=== PATIENT | female | born 1975 | race Caucasian/White ===

== ENCOUNTER 2018-11-13 13:24 | Emergency (ER) | payer BC, MEDICARE ==
[~2018-11-13] VITALS: Ht 172.7 cm; Wt 99.8 kg
[2018-11-13] MEDS ORDERED: LASIX 40 MG TAB40 M2 PO (13:37)
[2018-11-13] MEDS ORDERED: LYRICA 75 MG CA75 MG PO (13:37)
[2018-11-13] MEDS ORDERED: CYMBALTA60 MG PO (13:37)
[2018-11-13] MEDS ORDERED: FLEXERIL PO (13:38)
[2018-11-13] MEDS ORDERED: MEDROLDOSEPACK PO (15:59)
[2018-11-13] MEDS ORDERED: ROBAXIN 750 MG750 MG PO (15:59)
[2018-11-13 16:17] VITALS: BP 122/58
== END 2018-11-13 16:17 | disposition home or self-care (01) ==
LOC: M.ERS 13:24
DX: S16.1XXA Strain of muscle, fascia and tendon at neck level, initial encounter (principal); R07.89 Other chest pain; R51 Headache; Z98.890 Other specified postprocedural states; W18.39XA Other fall on same level, initial encounter; Y92.89 Other specified places as the place of occurrence of the external cause; Y93.89 Activity, other specified; Y99.8 Other external cause status

== ENCOUNTER 2019-07-14 09:03 | Emergency (ER) | payer BC, MEDICARE ==
[~2019-07-14] VITALS: Ht 172.7 cm; Wt 100.2 kg
[~2019-07-14 09:03] MED LIST: CYMBALTA60 MG PO; FLEXERIL PO; LASIX 40 MG TAB40 M2 PO; LYRICA 75 MG CA75 MG PO; MEDROLDOSEPACK PO; ROBAXIN 750 MG750 MG PO
[2019-07-14 09:25] LABS: ABSOLUTE BASOPHILS 0.1 thou/uL (0.0-0.2); ABSOLUTE EOSINOPHILS 0.1 thou/uL (0.0-0.7); ABSOLUTE LYMPHOCYTES 1.7 thou/uL (0.8-5.3); ABSOLUTE MONOCYTES 0.5 thou/uL (0.0-1.2); ABSOLUTE NEUTROPHILS 5.9 thou/uL (1.6-8.1); BASOPHILS 0.7 %; EOSINOPHILS 1.1 %; HEMATOCRIT 35.9 % (37.0-47.0); HEMOGLOBIN 12.1 gm/dL (12.0-15.0); MCH 27.4 pg (26.0-34.0); MCHC 33.6 g/dL (28.0-37.0); MCV 81.5 fL (80.0-100.0); MONOCYTES 5.9 %; MPV 8.2 fl. (7.2-11.1); NUCLEATED RBCS 0 /100WBC; PLATELET COUNT* 308 thou/uL (150-400); POLYS 71.3 %; RBC 4.41 mil/uL (4.20-5.00); RDW-CV 15.3 % (10.5-14.5); WBC 8.2 thou/uL (4.0-11.0)
[2019-07-14 09:34] LABS: CALCIUM 8.6 mg/dL (8.5-10.1); CREATININE 0.9 mg/dL (0.6-1.3); POTASSIUM 3.7 mmol/L (3.5-5.1)
[2019-07-14 09:39] LABS: ALBUMIN 3.4 g/dL (3.4-5.0); INR 0.9; PROTIME 9.5 Seconds (9.20-11.50); TOTAL BILIRUBIN 0.3 mg/dL (<0.1-1.0); TOTAL PROTEIN 8.1 g/dL (6.4-8.2)
--- NOTE | 2019-07-14 11:47 | EKG ---
[place] [address] ELECTROCARDIOGRAM REPORT Name: REVASHIKHAFARHEEN Stacy Room: [facility]#: [id number] Admission: 07/14/19 Attend Phys: Discharge: Date of : 73 Date of Service: 07/14/19906 Report #: [id number] THIS REPORT FOR: //name// [facility] ED Test Date: 2019-07-14 Test Time: 09:07:00 Pat Name: CARLA ARDON Department: Room: Gender: [employer] Developer: : 1975 Requested By: Bozena Laura Order Number: [id number] MD: Toy Elias Measurements Intervals Rogers Rate: 107 P: 83 MT: 88 QRS: 75 QRSD: 105 T: 4 QT: 351 QTc: 469 Interpretive Statements Sinus tachycardia No previous ECG available for comparison Electronically Signed On 07-14-2019 11:46:09 [employer] by Toy Elias [email or web address] <ELECTRONICALLY SIGNED> By: Toy Elias MD, [facility] 07/14/19 1146 6 6 Toy Elias MD, FACC /EPI
[2019-07-14 14:53] VITALS: BP 124/68
== END 2019-07-14 14:55 | disposition home or self-care (01) ==
LOC: M.ERS 09:03
PROVIDERS: Personal Emergency Response Attendant
DX: R07.89 Other chest pain (principal); R20.2 Paresthesia of skin; Z90.89 Acquired absence of other organs; Z98.890 Other specified postprocedural states; Z88.5 Allergy status to narcotic agent; Z88.8 Allergy status to other drugs, medicaments and biological substances